=== PATIENT | male | born 1985 | race African-American/Black ===

== ENCOUNTER 2024-06-24 16:28 | Emergency (ER) | payer MEDICAID, OTHER ==
[~2024-06-24] VITALS: Ht 185.4 cm; Wt 89.7 kg
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
[2024-06-24] MEDS: HYDROcodone-ACET 5/325MG TAB PO ONE (18:07)
[2024-06-24] MEDS: IBUPROFEN 600 MG TAB PO ONE (18:08)
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
[2024-06-24] MEDS ORDERED: IBUP-1456 PO (18:35)
[2024-06-24 18:37] VITALS: BP 128/86; PULSE 102; RESP 18; TEMP 98.5; O2SAT 96
== END 2024-06-24 18:38 | disposition home or self-care (01) ==
LOC: ER 16:28
DX: S90.32XA Contusion of left foot, initial encounter (principal); S90.122A Contusion of left lesser toe(s) without damage to nail, initial encounter; Z88.5 Allergy status to narcotic agent; V86.95XA Unspecified occupant of 3- or 4- wheeled all-terrain vehicle (ATV) injured in nontraffic accident, initial encounter; Y93.89 Activity, other specified; Y92.89 Other specified places as the place of occurrence of the external cause; Y99.8 Other external cause status
CPT/HCPCS: 73630